=== PATIENT | male | born 1940 | race Caucasian/White ===

== ENCOUNTER 2017-11-11 10:02 | Emergency (ER) | payer MEDICARE ==
[2017-11-11] MEDS ORDERED: SODIUM CHLORIDE 0.9% 500 ML IV STA (10:21)
[2017-11-11 10:56] LABS: Basophils # (A) 0.1 k/uL (0-0.2); Basophils % (A) 1 %; Eosinophils # (A) 0.6 k/uL (0-0.7); Eosinophils % (A) 9 %; HCT 41.9 % (39.0-53.0); HGB 13.6 gm/dL (13.0-17.5); Lymphocytes # (A) 1.5 k/uL (1.0-4.8); Lymphocytes % (A) 21 %; MCH 29.5 pg (25.0-35.0); MCHC 32.5 g/dL (31.0-37.0); MCV 90.6 fL (80.0-100.0); Mean Platelet Volume 8.5; Monocytes # (A) 0.6 k/uL (0-1.0); Monocytes % (A) 9 %; Neutrophils # (A) 4.3 k/uL (1.3-7.7); Neutrophils % (A) 59 %; Platelet Count 274 k/uL (150-450); RBC 4.63 m/uL (4.30-5.90); RDW 13.5 % (11.5-15.5); WBC 7.2 k/uL (3.8-10.6)
[2017-11-11 11:11] LABS: Albumin 4.3 g/dL (3.5-5.0); Calcium 9.7 mg/dL (8.4-10.2); Potassium 4.1 mmol/L (3.5-5.1); Total Bilirubin 0.5 mg/dL (0.2-1.3); Total Protein 6.9 g/dL (6.3-8.2)
--- NOTE | 2017-11-11 11:17 | XR ---
EXAMINATION TYPE: XR KUB DATE OF EXAM: 11/11/2017 11:05 AM CLINICAL HISTORY: Abdominal pain for 2 weeks. TECHNIQUE: Two Upright KUB images of the abdomen are obtained. COMPARISON: None. FINDINGS: There is some paucity of bowel gas. Visualized gas is noted in nondistended stomach as well as small and large bowel loops scattered throughout the abdomen and pelvis. Dextroconvex scoliosis i s present centered at L1 level. There is moderate to severe multilevel lateral spurring. No pneumoper itoneum is present. Suspect 4 to 5 mm right renal calculus mid pole level projecting over near tip of right 12th rib. IMPRESSION: Overall nonspecific but favor nonobstructive bowel gas pattern. Suspect right-sided nephrolithiasis.
[2017-11-11 11:23] LABS: Appearance,Urine Clear (Clear); Bilirubin,Urine Negative (Negative); Blood,Urine Negative (Negative); Color,Urine Yellow; Glucose,Urine (UA) Negative (Negative); Ketones,Urine Negative (Negative); Leukocyte Esterase,Urine Negative (Negative); Nitrite,Urine Negative (Negative); Protein,Urine Negative (Negative); Specific Gravity,Urine 1.015 (1.001-1.035); Urobilinogen,Urine <2.0 mg/dL (<2.0)
--- NOTE | 2017-11-11 11:47 | ED ---
Abdominal Pain HPI - General Chief Complaint: Abdominal Pain Stated Complaint: Stomach pain Time Seen by Provider: 11/11/17 10:20 Source: patient, family, RN notes reviewed Mode of arrival: ambulatory Limitations: no limitations - History of Present Illness Initial Comments: 77-year-old male presents emergency Department chief complaint of abdominal discomfort. Patient states that has been worsening over the last couple weeks. Patient states that it is worse when he eats couple hours after. Patient states he also has relief when he has a bowel movement. He denies any constipation or diarrhea. No dysuria no hematuria. Patient had prior prostate surgery. 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 The patient denies any fever, chills, chest pain, shortness breath, back pain. - Related Data Home Medications Medication Instructions Recorded Confirmed Amlodipine Besylate/Valsartan 1 tab PO DAILY 11/11/17 11/11/17 [Exforge 10-320 mg Tablet] Aspirin EC [Ecotrin] 325 mg PO DAILY 11/11/17 11/11/17 Atorvastatin [Lipitor] 20 mg PO HS 11/11/17 11/11/17 Carvedilol [Coreg] 12.5 mg PO BID 11/11/17 11/11/17 Chlorthalidone [Hygroton] 25 mg PO BID 11/11/17 11/11/17 Fenofibrate Nanocrystallized 145 mg PO DAILY 11/11/17 11/11/17 [Tricor] Isosorbide Mononitrate ER [Imdur] 30 mg PO DAILY 11/11/17 11/11/17 Levothyroxine Sodium [Synthroid] 125 mcg PO DAILY 11/11/17 11/11/17 Multivitamins, Thera [Multivitamin 1 tab PO DAILY 11/11/17 11/11/17 (formulary)] [place]-3 Fatty Acids/Fish Oil [Fish 1 cap PO DAILY 11/11/17 11/11/17 Oil 1,000 mg Softgel] Pantoprazole Sodium [Protonix] 20 mg PO DAILY 11/11/17 11/11/17 Previous Rx's Medication Instructions Recorded Dicyclomine [Bentyl] 20 mg PO TID #30 tablet 11/11/17 Allergies Allergy/AdvReac Type Severity Reaction Status Date / Time No Known Allergies Allergy Verified 11/11/17 10:44 Review of Systems ROS Statement: Those systems with pertinent positive or pertinent negative responses have been documented in the HPI. ROS Other: All systems not noted in ROS Statement are negative. Past Medical History Past Medical History: Heart Failure, Hypertension History of Any Multi-Drug Resistant Organisms: None Reported Additional Past Surgical History / Comment(s): Prostate surgery Past Psychological History: No Psychological Hx Reported Smoking Status: Never smoker Past Alcohol Use History: None Reported Past Drug Use History: None Reported General Exam Limitations: no limitations General appearance: alert, in no apparent distress Head exam: Present: atraumatic, normocephalic, normal inspection Respiratory exam: Present: normal lung sounds bilaterally. Absent: respiratory distress, wheezes, rales, rhonchi, stridor Cardiovascular Exam: Present: regular rate, normal rhythm, normal heart sounds. Absent: systolic murmur, diastolic murmur, rubs, gallop, clicks GI/Abdominal exam: Present: soft, tenderness (Mild diffuse), normal bowel sounds. Absent: distended, guarding, rebound, rigid Back exam: Absent: CVA tenderness (R), CVA tenderness (L) Skin exam: Present: warm, dry, intact, normal color. Absent: rash Course Vital Signs 11/11/17 10:14 Temperature 98.2 F Pulse Rate 58 L Respiratory 18 Rate Blood Pressure 137/66 O2 Sat by Pulse 99 Oximetry Medical Decision Making - Medical Decision Making 77-year-old male presents emergency department for intermittent abdominal pain. Patient had extensive workup in the emergency room including lab work, ultrasound, x-ray and CT. There is nonspecific findings no acute findings. Patient has no evidence urinary tract infection, diverticulitis, bowel obstruction. Patient had ultrasound which showed normal gallbladder. Patient will be advised to follow-up PCP, GI for possible colonoscopy and EGD. Patient we given Bentyl at this time return parameters were discussed. - Lab Data Result diagrams: 11/11/17 10:38 11/11/17 10:38 Lab Results 11/11/17 11/11/17 11/11/17 Range/Units 10:38 10:38 11:00 WBC 7.2 (3.8-10.6) k/uL RBC 4.63 (4.30-5.90) m/uL Hgb 13.6 (13.0-17.5) gm/dL Hct 41.9 (39.0-53.0) % MCV 90.6 (80.0-100.0) fL MCH 29.5 (25.0-35.0) pg MCHC 32.5 (31.0-37.0) g/dL RDW 13.5 (11.5-15.5) % Plt Count 274 (150-450) k/uL Neutrophils % 59 % Lymphocytes % 21 % Monocytes % 9 % Eosinophils % 9 % Basophils % 1 % Neutrophils # 4.3 (1.3-7.7) k/uL Lymphocytes # 1.5 (1.0-4.8) k/uL Monocytes # 0.6 (0-1.0) k/uL Eosinophils # 0.6 (0-0.7) k/uL Basophils # 0.1 (0-0.2) k/uL Sodium 140 (137-145) mmol/L Potassium 4.1 (3.5-5.1) mmol/L Chloride 105 (98-107) mmol/L Carbon Dioxide 24 (22-30) mmol/L Anion Gap 11 mmol/L BUN 59 H (9-20) mg/dL Creatinine 2.50 H (0.66-1.25) mg/dL Est GFR (CKD-EPI)AfAm 27 (>60 ml/min/1.73 sqM) Est GFR (CKD-EPI)NonAf 24 (>60 ml/min/1.73 sqM) Glucose 149 H (74-99) mg/dL Calcium 9.7 (8.4-10.2) mg/dL Total Bilirubin 0.5 (0.2-1.3) mg/dL AST 20 (17-59) U/L ALT 14 L (21-72) U/L Alkaline Phosphatase 35 L (38-126) U/L Total Protein 6.9 (6.3-8.2) g/dL Albumin 4.3 (3.5-5.0) g/dL Amylase 111 H (30-110) U/L Lipase 148 (23-300) U/L Urine Color Yellow Urine Appearance Clear (Clear) Urine pH 5.0 (5.0-8.0) Ur Specific [place] 1.015 (1.001-1.035) Urine Protein Negative (Negative) Urine Glucose (UA) Negative (Negative) Urine Ketones Negative (Negative) Urine Blood Negative (Negative) Urine Nitrite Negative (Negative) Urine Bilirubin Negative (Negative) Urine Urobilinogen <2.0 (<2.0) mg/dL Ur Leukocyte Esterase Negative (Negative) Disposition Clinical Impression: Abdominal pain Disposition: HOME SELF-CARE Condition: Stable Instructions: Abdominal Pain (ED) Additional Instructions: Please return to the Emergency Department if symptoms worsen or any other concerns. Prescriptions: Dicyclomine [Bentyl] 20 mg PO TID #30 tablet Is patient prescribed a controlled substance at d/c from ED?: No Referrals: Adolfo Chamorro MD [Primary Care Provider] - 1-2 days Bhavna Sanford MD [STAFF PHYSICIAN] - 1-2 days Time of Disposition: 13:14
--- NOTE | 2017-11-11 11:59 | US ---
EXAMINATION TYPE: US gallbladder DATE OF EXAM: 11/11/2017 COMPARISON: NONE CLINICAL HISTORY: Pain. Abdomen pain, patient not NPO: ate 3 1/2 hours ago EXAM MEASUREMENTS: Liver Length: 19.2 cm Gallbladder Wall: 0.2 cm CBD: 0.4 cm Right Kidney: 11.6 x 4.7 x 5.3 cm Pancreas: obscured by overlying midline bowel gas Liver: Heterogeneous Gallbladder: appears contracted, wnl as seen, patient not NPO Evidence for sonographic Santos's sign: no CBD: visualized portions wnl, limited by overlying bowel gas Right Kidney: 0.6cm echogenic shadowing focus mid pole Liver appears heterogeneous and prominent. Possible 6 mm nonobstructing calculus mid pole level right kidney. Contracted gallbladder is seen without shadowing mobile gallstones. IMPRESSION: No shadowing mobile gallstones or secondary ultrasound evidence for acute cholecystitis
--- NOTE | 2017-11-11 12:43 | CT ---
EXAMINATION TYPE: CT abdomen pelvis wo con DATE OF EXAM: 11/11/2017 COMPARISON: None HISTORY: Generalized abdominal pain x [address] DLP: 408.1 mGycm Automated exposure control for dose reduction was used. TECHNIQUE: Helical acquisition of images was performed from the lung bases through the pelvis. FINDINGS: LUNG BASES: No significant abnormality is appreciated. LIVER/GB: No significant abnormality is appreciated. PANCREAS: No significant abnormality is seen. SPLEEN: Splenic granuloma noted. ADRENALS: No significant abnormality is seen. KIDNEYS: There are 2 right renal calcifications both measuring approximately 3 mm. No hydronephrosis. Nonspecific bilateral perinephric stranding. URINARY BLADDER: No significant abnormality is seen. ADENOPATHY: None visualized. OSSEOUS STRUCTURES: Scoliotic curvature the spine with severe multilevel degenerative changes. Chron ic rib deformity on the left. Suspect canal stenosis involving the lower lumbar spine correlate with MRI as clinically warranted.. BOWEL: Bowel gas pattern nonspecific. OTHER: Atherosclerotic change of the vasculature. Aorta of normal caliber. Fat-containing inguinal he rnias. IMPRESSION: 1. Nonobstructing right renal calculi. Nonspecific bilateral perinephric stranding correlate clinical ly with urinalysis. 2. Splenic granuloma
[2017-11-11 13:27] VITALS: BP 129/60; PULSE 54; RESP 16; TEMP 98
== END 2017-11-11 13:26 | disposition home or self-care (01) ==
LOC: EC 10:02
DX: R10.9 Unspecified abdominal pain (principal); I11.0 Hypertensive heart disease with heart failure; I50.9 Heart failure, unspecified; Z79.82 Long term (current) use of aspirin; Z79.02 Long term (current) use of antithrombotics/antiplatelets; Z79.899 Other long term (current) drug therapy
CPT/HCPCS: 36415; 74018; 74176; 76705; 80053; 81003; 82150; 83690; 85025; 96360; 96361; 99284

== ENCOUNTER 2018-10-22 05:09 | Emergency (ER) | payer MEDICARE ==
[2018-10-22] MEDS ORDERED: KETOROLAC 60 MG/2 ML VIAL IM STA (05:28)
[2018-10-22] MEDS ORDERED: DIAZEPAM 5 MG/ML 2 ML INJ IM ONE (05:28)
[2018-10-22] MEDS ORDERED: MORPHINE SULFATE 4 MG/ML SYRINGE IM STA ×2 (06:14→07:30)
--- NOTE | 2018-10-22 06:43 | ED ---
Neck Injury/Pain HPI - General Mode of arrival: ambulatory Limitations: no limitations - History of Present Illness MD Complaint: neck pain -: hour(s) Place: home Radiation: left lateral, left shoulder Severity: severe Quality: aching Consistency: constant Improves With: none Worsens With: movement of neck Context: lifting Associated Symptoms: none Treatments Prior to Arrival: none <Ray Padilla - Last Filed: 10/22/18 06:51> <Jennifer Gao - Last Filed: 10/22/18 07:47> - General Chief Complaint: Neck Pain/Injury Stated Complaint: Neck Pain Time Seen by Provider: 10/22/18 05:23 - History of Present Illness Initial Comments: This patient is an 78-year-old man who presents to be evaluated for left-sided neck pain and stiffness. The patient had been having some mild symptoms going back from 1-2 weeks. The patient states that he had done some work on his truck yesterday and then noted that the pain became much more severe and he was not able to turn his neck over the course of last night and into this morning. The pain is preventing him from lying down to sleep. He is denying any trauma or direct blow to the neck or back. There is no headache. No neurologic symptoms, including no weakness or numbness of the arms or down into the trunk. (Ray Padilla) - Related Data Home Medications Medication Instructions Recorded Confirmed Amlodipine Besylate/Valsartan 1 tab PO DAILY 11/11/17 10/22/18 [Exforge 10-320 mg Tablet] Atorvastatin [Lipitor] 20 mg PO HS 11/11/17 10/22/18 Carvedilol [Coreg] 12.5 mg PO BID 11/11/17 10/22/18 Chlorthalidone [Hygroton] 25 mg PO BID 11/11/17 10/22/18 Fenofibrate Nanocrystallized 145 mg PO DAILY 11/11/17 10/22/18 [Tricor] Isosorbide Mononitrate ER [Imdur] 30 mg PO DAILY 11/11/17 10/22/18 Levothyroxine Sodium [Synthroid] 125 mcg PO DAILY 11/11/17 10/22/18 Multivitamins, Thera [Multivitamin 1 tab PO DAILY 11/11/17 10/22/18 (formulary)] [place]-3 Fatty Acids/Fish Oil [Fish 1 cap PO DAILY 11/11/17 10/22/18 Oil 1,000 mg Softgel] Pantoprazole Sodium [Protonix] 20 mg PO DAILY 11/11/17 10/22/18 ALPRAZolam [Xanax] 0.25 mg PO DAILY PRN 10/22/18 10/22/18 Aspirin EC [Ecotrin Low Dose] 81 mg PO DAILY 10/22/18 10/22/18 Previous Rx's Medication Instructions Recorded Cyclobenzaprine [Flexeril] 10 mg PO TID 7 Days #21 tab 10/22/18 Ibuprofen [Motrin] 600 mg PO Q8HR PRN #20 tab 10/22/18 Methocarbamol [Robaxin-750] 750 mg PO TID PRN #30 tablet 10/22/18 Allergies Allergy/AdvReac Type Severity Reaction Status Date / Time No Known Allergies Allergy Verified 10/22/18 06:44 Review of Systems ROS Other: All systems not noted in ROS Statement are negative. Constitutional: Denies: fever, chills Respiratory: Denies: cough Cardiovascular: Denies: chest pain, palpitations Gastrointestinal: Denies: abdominal pain, vomiting Genitourinary: Denies: dysuria Musculoskeletal: Reports: as per HPI, myalgia Skin: Denies: rash Neurological: Denies: headache, weakness, numbness <Ray Padilla - Last Filed: 10/22/18 06:51> ROS Other: All systems not noted in ROS Statement are negative. <Jennifer Gao - Last Filed: 10/22/18 07:47> ROS Statement: Those systems with pertinent positive or pertinent negative responses have been documented in the HPI. Past Medical History Past Medical History: Heart Failure, Hypertension History of Any Multi-Drug Resistant Organisms: None Reported Additional Past Surgical History / Comment(s): Prostate surgery Past Psychological History: No Psychological Hx Reported Smoking Status: Never smoker Past Alcohol Use History: None Reported Past Drug Use History: None Reported <Ray Padilla - Last Filed: 10/22/18 06:51> General Exam Limitations: no limitations General appearance: alert, in no apparent distress Head exam: Present: atraumatic, normocephalic Eye exam: Present: normal appearance Neck exam: Present: tenderness, other (The patient has significant spasm of the left paraspinal and left trapezius muscles. Palpation reproduces patient's pain. There is no bony tenderness or deformity. There is good flexion and extension but not rotation of the neck.). Absent: meningismus, full ROM Respiratory exam: Present: normal lung sounds bilaterally. Absent: respiratory distress, wheezes, rales, rhonchi, stridor Cardiovascular Exam: Present: regular rate, normal rhythm, normal heart sounds, other (Symmetric and normal strength radial pulses) GI/Abdominal exam: Present: soft. Absent: tenderness Extremities exam: Present: normal inspection, normal capillary refill. Absent: pedal edema, calf tenderness Back exam: Present: normal inspection, paraspinal tenderness (Left neck, as above). Absent: vertebral tenderness Neurological exam: Present: alert. Absent: motor sensory deficit Skin exam: Present: warm, dry, intact, normal color. Absent: rash <Ray Padilla - Last Filed: 10/22/18 06:51> Course <Jennifer Gao - Last Filed: 10/22/18 07:47> Vital Signs 10/22/18 05:15 Temperature 97.6 F Pulse Rate 67 Respiratory 20 Rate Blood Pressure 181/75 O2 Sat by Pulse 99 Oximetry - Reevaluation(s) Reevaluation #1: I personally evaluated patient obtaining history, patient states that has has pain in the posterior left neck that increases with ROM and was worsened after working on his car. Denies MCRAE, dizziness, vomiting, or pain in the anterior neck. Denies CP/SOB. Appears musculoskeletal. N/V intact. well appearing. Pt CT pending at this time, given additional dose of morphine. 10/22/18 07:30 (Jennifer Gao) Disposition Is patient prescribed a controlled substance at d/c from ED?: No <Ray Padilla - Last Filed: 10/22/18 06:51> Is patient prescribed a controlled substance at d/c from ED?: No Time of Disposition: 07:47 <Jennifer Gao - Last Filed: 10/22/18 07:47> Clinical Impression: Torticollis Disposition: HOME SELF-CARE Condition: Good Instructions (If sedation given, give patient instructions): Cervical Strain (ED) Additional Instructions: Please use medications as discussed. Please follow-up with PCP in 1-2 days, please seek evaluation by orthopedic surgery within the next 1-2 weeks. If symptoms worsen, or experience arm weakness, numbness, or any other concerning signs of symptoms please return to the ER. Recommend outpatient MRI. Prescriptions: Cyclobenzaprine [Flexeril] 10 mg PO TID 7 Days #21 tab Ibuprofen [Motrin] 600 mg PO Q8HR PRN #20 tab PRN Reason: Pain Methocarbamol [Robaxin-750] 750 mg PO TID PRN #30 tablet PRN Reason: pain Referrals: Adolfo Chamorro MD [Primary Care Provider] - 1-2 days
[2018-10-22] MEDS ORDERED: ORPHENADRINE 30 MG/ML 2 ML VIAL IM STA (06:47)
--- NOTE | 2018-10-22 07:30 | CT ---
EXAMINATION TYPE: CT cervical spine wo con DATE OF EXAM: 10/22/2018 COMPARISON: NONE HISTORY: Nontraumatic severe cervical pain CT DLP: 371.1 mGycm. Automated Exposure Control for Dose Reduction was Utilized. TECHNIQUE: CT scan of the cervical spine is obtained without contrast, axial images are obtained, sa gittal and coronal reformatted images are also reviewed. FINDINGS: There is grade 1 anterolisthesis of C3 on C4 and C4 and C5 as well as retrolisthesis of C6 on C7. The re is severe intervertebral disc space narrowing at C5-C6 with near osseous fusion of these vertebral bodies. Multilevel intervertebral disc space narrowing, anterior osteophytes, facet arthropathy and uncovertebral hypertrophy are also seen in the cervical spine. There is reversal of the usual cervica l lordosis. Facets 2 remain aligned. There is degenerative narrowing of the atlantodental interval. E valuation of the spinal canal is limited on CT. Osseous cysts are seen of the dens and body of C2. No acute fracture is identified. Multilevel neural foraminal narrowing would be better evaluated with MRI however grossly there is mil d right and moderate left neural foraminal narrowing at C3, severe left and mild right neural foramin al narrowing at the C4, severe left and moderate right neural foraminal narrowing at C4-C5, severe ri ght and moderate left neural foraminal narrowing at C5-C6, severe right and mild left neural foramina l narrowing at C6-C7, and mild bilateral neural foraminal narrowing at C7-T1. Again there is limitati on in evaluation of the spinal canal however at C2-C3 there is a small posterior disc osteophyte comp lola, at C3-C4 there appears to be a small central disc herniation, at C4-C5 there also appears to be a disc herniation although incompletely evaluated. MRI is recommended specifically for this level. At C5-C6 posterior osteophyte is seen and C6-C7 posterior disc osteophyte complex is seen. There is pre sumed to be mild spinal canal stenosis throughout the cervical spine. IMPRESSION: 1. No acute fracture or dislocation evident in the cervical spine. 2. 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 Disc disease would be better evaluated with MRI and MRA is recommended, most notably for the C4-C5 level t o evaluate a disc herniation and agree spinal canal stenosis. 3. Multilevel malalignment is likely on a degenerative basis. Reversal usual cervical lordosis is als o seen that may be on the basis of sprain, spasm or patient positioning.
[2018-10-22 08:01] VITALS: BP 131/70; PULSE 59; RESP 17; TEMP 97.7
== END 2018-10-22 07:55 | disposition home or self-care (01) ==
LOC: EC 05:09
DX: S13.4XXA Sprain of ligaments of cervical spine, initial encounter (principal); I11.0 Hypertensive heart disease with heart failure; I50.9 Heart failure, unspecified; Z79.02 Long term (current) use of antithrombotics/antiplatelets; Z79.82 Long term (current) use of aspirin; Z79.890 Hormone replacement therapy; Z79.899 Other long term (current) drug therapy; X50.9XXA Other and unspecified overexertion or strenuous movements or postures, initial encounter
CPT/HCPCS: 72125; 99283; 96372 ×5; J2270; J2360; J3360; J1885